=== PATIENT | male | born 1990 | race Caucasian/White ===

== ENCOUNTER 2021-05-04 11:22 | Emergency (ER) | payer OTHER ==
[~2021-05-04] VITALS: Ht 190.5 cm; Wt 95.7 kg
--- NOTE | 2021-05-04 14:00 | REP ---
INDICATION: cough, sob. COMPARISON: None. TECHNIQUE: PA and lateral FINDINGS: The superior mediastinal structures are midline. The cardiac silhouette is unremarkable in size, shape, and position. The diaphragmatic surfaces of the lungs are regular, and the costophrenic angles are clear. The pulmonary guaman are clear. The imaged osseous structures are intact. IMPRESSION: There is no acute cardiopulmonary disease. <Electronically signed by Jaime De La Garza > 05/04/21 [id number]
[2021-05-04] MEDS ORDERED: TESS100C PO (14:17)
[2021-05-04 14:30] VITALS: BP 128/72
== END 2021-05-04 14:30 | disposition home or self-care (01) ==
LOC: M ED 11:22
DX: J06.9 Acute upper respiratory infection, unspecified (principal)
CPT/HCPCS: 71046; 99284; U0003